=== PATIENT | female | born 1980 | race Caucasian/White ===

== ENCOUNTER 2017-09-21 15:03 | Emergency (ER) | payer OTHER ==
[2017-09-21 15:08] VITALS: BP 118/76; PULSE 120; RESP 20; TEMP 98.6; O2SAT 100
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
[2017-09-21] MEDS ORDERED: ROBA750T PO (19:54)
[2017-09-21] MEDS ORDERED: IBUP-232 PO (19:54)
[2017-09-21] MEDS ORDERED: IBUPROFEN 600 MG TAB PO ONE (20:00)
[2017-09-21] MEDS ORDERED: METHOCARBAMOL 500 MG TAB PO ONE (20:00)
== END 2017-09-21 20:14 | disposition home or self-care (01) ==
LOC: NEDAMB 15:03
DX: S09.90XA Unspecified injury of head, initial encounter (principal); S16.1XXA Strain of muscle, fascia and tendon at neck level, initial encounter; M25.561 Pain in right knee; M25.562 Pain in left knee; V43.53XA Car driver injured in collision with pick-up truck in traffic accident, initial encounter
CPT/HCPCS: 70450; 70486; 71045; 72072; 72100; 72125; 73564; 84703; 99284

== ENCOUNTER 2018-06-29 15:20 | Inpatient (IN) ==
--- NOTE | 2018-06-29 15:58 | ED ---
HPI General Chief Complaint: Overdose Stated Complaint: Poss OD Time Seen by Provider: 06/29/18 15:37 Source: patient Mode of arrival: ambulatory Limitations: no limitations History of Present Illness HPI Narrative: 38 year old female with a past medical history of asthma and depression presents to the ED for evaluation of Benadryl overdose. She states that she has been feeling very depressed over the last few days and today while getting for work she started crying uncontrollably. She says she went into the medicine cabinet and took all the pills in the Benadryl bottle. She says that immediately after she realized she didn't want to and tried to induce vomiting but was unsuccessful. She says that she was previously medicated for her depression about two years ago but the medication became too expensive for her budget. She states she attempted suicide once before while she was actively using illicit drugs but that was many years ago and she says she was so high at the time that she doesn't remember doing it. She denies taking any other medications, alcohol or illict drugs today. She states that she is unsure if the bottle was full but that the bottle holds 36 pills. She denies any cardiac history, chest pain, abdominal pain, nausea or vomiting. Related Data Home Medications Medication Instructions Recorded Confirmed No Known Home Medications 06/18/18 06/29/18 Allergies Allergy/AdvReac Type Severity Reaction Status Date / Time No Known Allergies Allergy Unverified 11/27/17 22:48 Review of Systems ROS: all other systems reviewed are negative [facility] Medical History Medical History Depression (Acute) Hepatitis C (Acute) Social History Social History Substance History: Past History Second Hand Smoke Exposure: Yes Smoking Status: Former smoker Tobacco Type: Cigarettes How Often Do You Have a Drink Containing Alcohol: Never Recent Travel in [facility] within the Last 8 Weeks: No Recent Out of Country Travel within the Last 8 Weeks: No Immunization History Tetanus Immunization: >5 Years Exam Narrative Exam Narrative: GENERAL: Well-appearing in no distress. SKIN: Focused skin assessment warm/dry. HEAD: Atraumatic. Normocephalic. EYES: Pupils equal and round. No scleral icterus. No injection or drainage. ENT: No nasal bleeding or discharge. Mucous membranes pink and moist. Tongue is midline. No uvula deviation. NECK: Trachea midline. No JVD. CARDIOVASCULAR: Regular rate and rhythm. No murmur appreciated. RESPIRATORY: No accessory muscle use. Clear to auscultation. Breath sounds equal bilaterally. GASTROINTESTINAL: Abdomen soft, non-tender, nondistended. Hepatic and splenic margins not palpable. MUSCULOSKELETAL: No obvious deformities. No clubbing. No cyanosis. No edema. Full range of motion of the upper and lower extremities bilaterally. 2+ pulse bilaterally. NEUROLOGICAL: Awake and alert. No obvious cranial nerve deficits. Motor grossly within normal limits. Normal speech. PSYCHIATRIC: Appropriate mood and affect; insight and judgment normal. Course Initial Documented Vital Signs Pulse Rate 109 H 06/29/18 15:33 Respiratory Rate 20 06/29/18 15:33 Blood Pressure 149/107 H 06/29/18 15:33 Pulse Oximetry 100 06/29/18 15:33 Last Documented Vital Signs Temperature 98.2 F 06/29/18 17:10 Pulse Rate 69 06/29/18 18:10 Respiratory Rate 16 06/29/18 18:10 Blood Pressure 111/75 06/29/18 18:10 Pulse Oximetry 100 06/29/18 18:10 Medical Decision Making MDM Narrative Medical decision making narrative: 38-year-old female who presents to the ED for evaluation of overdose. Patient was properly examined and was found to have signs and symptoms consistent with overdose. Patient involuntarily and willing to stay. Patient wants help. This time but she will not be Peters acted but if she does decide to leave she will be Peters acted. Labs ordered. Labs were essentially unremarkable. Poison control was contacted and the recommend that patient had a second EKG and monitor. If patient fine with no sign of QRS abnormalities patient could be medically clear. Labs and psych and EKG were essentially unremarkable. Patient was medically cleared pending psychiatric evaluation. Mental health screening was discussed with the patient. Medical Screen Exam Complete: Yes Emergency Medical Condition: Yes Differential Diagnosis Differential Diagnosis: Overdose versus depression versus suicidal attempt versus Benadryl overdose Medical Records Medical records reviewed: Yes I reviewed the patient's medical records. Lab Data Lab results reviewed: Yes I reviewed the patient's lab results. Result diagrams: 06/29/18 16:07 06/29/18 16:07 POC Results POC Urine Results Negative Lab Results 02/06/29/18 06/29/18 Range/Units 16:02 16:07 16:07 WBC 8.3 (4.0-11.0) th/mm3 RBC 4.15 (4.00-5.30) mil/mm3 Hgb 12.7 (11.6-15.3) gm/dL Hct 37.2 (35.0-46.0) % MCV 89.6 (80.0-100.0) fL MCH 30.5 (27.0-34.0) pg MCHC 34.1 (32.0-36.0) % RDW 13.5 (11.6-17.2) % Plt Count 169 (150-450) th/mm3 MPV 9.1 (7.0-11.0) fL Neut % (Auto) 60.7 (16.0-70.0) % Lymph % (Auto) 25.0 (9.0-44.0) % [place] % (Auto) 11.0 H (0.0-8.0) % Eos % (Auto) 2.6 (0.0-4.0) % Baso % (Auto) 0.7 (0.0-2.0) % Neut # (Auto) 5.0 (1.8-7.7) th/mm3 Lymph # (Auto) 2.1 (1.0-4.8) th/mm3 [place] # (Auto) 0.9 (0.0-0.9) th/mm3 Eos # (Auto) 0.2 (0.0-0.4) th/mm3 Baso # (Auto) 0.1 (0.0-0.2) th/mm3 WBC Differential . Differential Comment Auto diff final Sodium 142 (136-145) meq/L Potassium 3.3 L (3.5-5.1) meq/L Chloride 108 H (98-107) meq/L Carbon Dioxide 26.9 (21.0-32.0) meq/L Anion Gap 7 (5-15) meq/L BUN 8 (7-18) mg/dL Creatinine 0.79 (0.50-1.00) mg/dL Estimated GFR 82 L (>89) mL/min Random Glucose 78 (74-106) mg/dL Calcium 8.3 L (8.5-10.1) mg/dL Magnesium 2.1 (1.5-2.5) mg/dL Total Bilirubin 0.4 (0.2-1.0) mg/dL AST 36 (15-37) U/L ALT 22 (10-53) U/L Alkaline Phosphatase 89 (45-117) U/L Total Protein 7.5 (6.4-8.2) g/dL Albumin 3.7 (3.4-5.0) g/dL TSH 0.185 L (0.358-3.740) uIU/mL Thyroxine (T4) 9.9 (4.8-13.9) mcg/dL Salicylates (2.8-20.0) mg/dL Urine Opiates Screen Neg (Neg) Acetaminophen Less than 2.0 L (10.0-30.0) mcg/mL Ur Barbiturates Screen Neg (Neg) Ur Amphetamines Screen Neg (Neg) U Benzodiazepines Scrn Neg (Neg) Urine Cocaine Screen Neg (Neg) U Cannabinoids Screen Neg (Neg) Serum Alcohol Less than 3 (0-5) mg/dL 06/29/18 06/29/18 Range/Units 16:07 16:07 WBC (4.0-11.0) th/mm3 RBC (4.00-5.30) mil/mm3 Hgb (11.6-15.3) gm/dL Hct (35.0-46.0) % MCV (80.0-100.0) fL MCH (27.0-34.0) pg MCHC (32.0-36.0) % RDW (11.6-17.2) % Plt Count (150-450) th/mm3 MPV (7.0-11.0) fL Neut % (Auto) (16.0-70.0) % Lymph % (Auto) (9.0-44.0) % [place] % (Auto) (0.0-8.0) % Eos % (Auto) (0.0-4.0) % Baso % (Auto) (0.0-2.0) % Neut # (Auto) (1.8-7.7) th/mm3 Lymph # (Auto) (1.0-4.8) th/mm3 [place] # (Auto) (0.0-0.9) th/mm3 Eos # (Auto) (0.0-0.4) th/mm3 Baso # (Auto) (0.0-0.2) th/mm3 WBC Differential Differential Comment Sodium (136-145) meq/L Potassium (3.5-5.1) meq/L Chloride (98-107) meq/L Carbon Dioxide (21.0-32.0) meq/L Anion Gap (5-15) meq/L BUN (7-18) mg/dL Creatinine (0.50-1.00) mg/dL Estimated GFR (>89) mL/min Random Glucose (74-106) mg/dL Calcium (8.5-10.1) mg/dL Magnesium (1.5-2.5) mg/dL Total Bilirubin (0.2-1.0) mg/dL AST (15-37) U/L ALT (10-53) U/L Alkaline Phosphatase (45-117) U/L Total Protein (6.4-8.2) g/dL Albumin (3.4-5.0) g/dL TSH (0.358-3.740) uIU/mL Thyroxine (T4) Cancelled (4.8-13.9) mcg/dL Salicylates 3.1 (2.8-20.0) mg/dL Urine Opiates Screen (Neg) Acetaminophen (10.0-30.0) mcg/mL Ur Barbiturates Screen (Neg) Ur Amphetamines Screen (Neg) U Benzodiazepines Scrn (Neg) Urine Cocaine Screen (Neg) U Cannabinoids Screen (Neg) Serum Alcohol (0-5) mg/dL ECG Data Attestation: I personally reviewed and interpreted this ECG as follows: Interpretation: EKG shows sinus rhythm with no sign of acute ischemia and arrhythmia read by me and attending. Ventricular rate of 67 bpm, IA interval 149 ms. Discharge Plan Discharge Disposition Patient Disposition: Sign Out(ED Internal Use Only) Discharge Details Diagnosis: Drug overdose, Depression with suicidal ideation Physicians Team ED Provider: Radha [place] ED Midlevel Provider: Miguel Spears Primary Care Provider: Primary Care Carlee Ibrahim Rxs /Orders / Referrals /Forms Prescriptions: No Action No Known Home Medications RF: 0 Status ED Status: Medically Cleared
[2018-06-29 16:19] LABS: Baso # (Auto) 0.1 th/mm3 (0.0-0.2); Baso % (Auto) 0.7 % (0.0-2.0); Eos # (Auto) 0.2 th/mm3 (0.0-0.4); Eos % (Auto) 2.6 % (0.0-4.0); Hematocrit 37.2 % (35.0-46.0); Hemoglobin 12.7 gm/dL (11.6-15.3); Lymph # (Auto) 2.1 th/mm3 (1.0-4.8); Mean Corpuscular HGB Conc 34.1 % (32.0-36.0); Mean Corpuscular Hemoglobin 30.5 pg (27.0-34.0); Mean Corpuscular Volume 89.6 fL (80.0-100.0); Mean Platelet Volume 9.1 fL (7.0-11.0); Mono # (Auto) 0.9 th/mm3 (0.0-0.9); Neut % (Auto) 60.7 % (16.0-70.0); Platelet Count 169 th/mm3 (150-450); Red Blood Count 4.15 mil/mm3 (4.00-5.30); Red Cell Distribution Width 13.5 % (11.6-17.2); White Blood Count 8.3 th/mm3 (4.0-11.0)
[2018-06-29 16:43] LABS: Alanine Aminotransferase 22 U/L (10-53); Albumin 3.7 g/dL (3.4-5.0); Anion Gap 7 meq/L (5-15); Aspartate Aminotransferase 36 U/L (15-37); Calcium 8.3 mg/dL (8.5-10.1); Carbon Dioxide 26.9 meq/L (21.0-32.0); Chloride 108 meq/L (98-107); Glomerular Filtration Rate 82 mL/min (>89); Glucose,Random 78 mg/dL (74-106); Magnesium 2.1 mg/dL (1.5-2.5); Potassium 3.3 meq/L (3.5-5.1); Sodium 142 meq/L (136-145)
[2018-06-29 16:51] LABS: Alkaline Phosphatase 89 U/L (45-117); Blood Urea Nitrogen 8 mg/dL (7-18); Thyroid Stimulating Hormone 0.185 uIU/mL (0.358-3.740); Total Protein 7.5 g/dL (6.4-8.2)
[2018-06-29] MEDS ORDERED: Sod Chloride 0.9% Inj 1,000 ML IV.SIG SCH (17:15)
[2018-06-29 17:35] LABS: T4 (Thyroxine) 9.9 mcg/dL (4.8-13.9)
[2018-06-29 17:57] LABS: Amphetamine Screen,Urine Neg (Neg); Barbiturate Screen,Urine Neg (Neg); Cannabinoid Screen,Urine Neg (Neg); Cocaine Screen,Urine Neg (Neg)
[2018-06-29 18:07] LABS: Opiate Screen,Urine Neg (Neg)
[2018-06-30] MEDS ORDERED: Acetaminophen 325 MG Tablet PO PRN (00:48)
[2018-06-30] MEDS ORDERED: Aluminum/Magnesium/Simethacone Susp 30 ML UDC PO PRN (00:48)
[2018-06-30] MEDS ORDERED: LORazepam 1 MG Tablet PO PRN (00:48)
[2018-06-30] MEDS: Sertraline 50 MG Tablet PO SCH (09:06)
--- NOTE | 2018-06-30 10:28 | P.HPPSY ---
Provisional Diagnosis Admission Date: June 29, 2018 23:44 [place] I.: Adjustment disorder with depressed mood Competence Certification of Person's Competence To Provide Express and Informed Consent I have personally examined Ana Boudreaux, a person being served at [facility] on, June 30, 2018 1019. Express and informed consent means consent voluntarily given in writing, by a competent person, after sufficient explanation and disclosure of the subject matter involved to enable the person to make a knowing and willful decision without any element of force, fraud, deceit, duress, or other form of constraint or coercion. This person is 18 years of age or older, is not now known to be incompetent to consent to treatment with a guardian advocate, and does not have a health care surrogate or proxy currently making medical treatment decisions. I have found this person to be one of the following: [] Competent to provide express and informed consent, as defined above, for voluntary admission to this facility and is competent to provide express and informed consent for treatment. He/she has the consistent capacity to make well reasoned, willful, and knowing decisions concerning his or her medical or mental health treatment. The person fully and consistently understands the purpose of the admission for examination/placement and is fully capable of personally exercising all rights assured [place] [] Incompetent to provide express and informed consent to voluntary admission, and this is incompetent to provide express and informed consent to treatment. The person must be transferred to involuntary status and a petition for a guardian advocate filed with the Circuit Court. [] Refusing to provide express and informed consent to voluntary admission but is competent to provide express and informed consent for treatment. The person must be discharged or transferred to involuntary status. Form shall be completed within 24 hours of a person's arrival at the receiving facility and filed in the clinical record of each person: 1. Admitted on a voluntary basis 2. Permitted to provide express and informed consent to his/her own treatment 3. Allowed to transfer from involuntary to voluntary status 4. Prior to permitting a person to consent to his or her own treatment after having been previously found incompetent to consent to treatment. History of Present Illness Capacity: Has capacity Chief Complaint: Depression and suicidal overdose History of Present Illness: HPI: Patient is a 38-year-old female who is admitted voluntarily after taking an overdose of unknown number of Benadryl caplets. Patient was sleeping soundly but both times when I attempted to interview her and did not take her breakfast. Patient admitted still uncertain about her continued intention of regarding suicide. Claims immediately after taking the Benadryl overdose she regretted to and 20 minutes later attempted emesis without success. It was then that she called for help. 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 At work in a [employer] she feels the management is always on her and never pleased with her work. The patient has had one other suicide attempt years ago when she was using illicit drugs on a regular basis. Patient describes her impulses to do harm to herself as coming and going. Although the patient cooperated with the interview it seemed likely she was more interested in falling back to sleep and avoiding any difficult questions. - Inpatient Certification I certify that the inpatient services were ordered in accordance with Medicare regulations governing the order. This includes certification that hospital inpatient services are reasonable and necessary and in the case of services not specified as inpatient-only under 42 CFR 419.22(n), that they are appropriately provided as inpatient services in accordance to with the 2-midnight benchmark under 43 CFR 412.3(e) I certify that inpatient psychiatric hospital services are medically necessary. Evaluation and treatment and/or diagnostic testing are expected to improve the patient's condition. The patient needs on a daily basis, active treatment furnished directly by or requiring the supervision of inpatient psychiatric facility personnel. Estimated Total Length of Stay (Days): 5 Plans for Post Hospital Care: Not yet determined Review of Systems Denies any physical problems on the [facility] - History History Provided By: Patient - Medical History Medical History: Medical History (Last Reviewed 06/29/18 @ 15:56 by NYDIA White) Depression Hepatitis C - Tobacco History Second Hand Smoke Exposure: No Tobacco Use In Past 30 Days: Yes Smoking Status: Current every day smoker Tobacco Type: Cigarettes - Alcohol History How Often Do You Have a Drink Containing Alcohol: Monthly or less - Substance Use History Substance History: Past History - Travel History Recent Travel in the [place] Within the Last 8 Weeks: No Recent Travel Out of the Country Within the Last 8 Weeks: No - Immunization History Tetanus Immunization: Unsure Hx Influenza Vaccine This Season: No Medications and Allergies Active Medications: Active Medications Acetaminophen (Tylenol) 650 mg PO Q4H PRN PRN Reason: Pain 1-5 or Temp >101F Al Hydrox/Mg Hydrox/Simethicone (Mag-Al Plus Susp Liq) 30 ml PO Q6H PRN PRN Reason: DYSPEPSIA Al Hydroxide/Mg Hydroxide (Milk Of Magnesia Liq) 30 ml PO DAILY PRN PRN Reason: CONSTIPATION Hydroxyzine HCl (Atarax) 25 mg PO Q6H PRN PRN Reason: ANXIETY AND/OR INSOMNIA Last Admin: 06/30/18 09:06 Dose: 25 mg Lorazepam (Ativan) 1 mg PO Q6H PRN PRN Reason: MODERATE TO SEVERE ANXIETY Lorazepam (Ativan Inj) 1 mg IM Q6H PRN PRN Reason: MODERATE TO SEVERE ANXIETY Nicotine (Habitrol 21 Mg Patch.24 Hr) 1 patch T-DERMAL DAILY [facility] Last Admin: 06/30/18 09:06 Dose: 1 patch Sertraline HCl (Zoloft) 50 mg PO DAILY [facility] Last Admin: 06/30/18 09:06 Dose: 50 mg Allergies Allergy/AdvReac Type Severity Reaction Status Date / Time No Known Allergies Allergy Unverified 11/27/17 22:48 Home Medications Medication Instructions Recorded Confirmed Type No Known Home Medications 06/18/18 06/29/18 History Results - Labs CBC & Chem 7: 06/29/18 16:07 06/29/18 16:07 Labs: Laboratory Results - last 24 hr 06/29/18 06/29/18 06/29/18 16:02 16:07 16:07 WBC 8.3 RBC 4.15 Hgb 12.7 Hct 37.2 MCV 89.6 MCH 30.5 MCHC 34.1 RDW 13.5 Plt Count 169 MPV 9.1 Neut % (Auto) 60.7 Lymph % (Auto) 25.0 [place] % (Auto) 11.0 H Eos % (Auto) 2.6 Baso % (Auto) 0.7 Neut # (Auto) 5.0 Lymph # (Auto) 2.1 [place] # (Auto) 0.9 Eos # (Auto) 0.2 Baso # (Auto) 0.1 WBC Differential . Differential Comment Auto diff final Sodium 142 Potassium 3.3 L Chloride 108 H Carbon Dioxide 26.9 Anion Gap 7 BUN 8 Creatinine 0.79 Estimated GFR 82 L Random Glucose 78 Calcium 8.3 L Magnesium 2.1 Total Bilirubin 0.4 AST 36 ALT 22 Alkaline Phosphatase 89 Total Protein 7.5 Albumin 3.7 TSH 0.185 L Thyroxine (T4) 9.9 Salicylates Urine Opiates Screen Neg Acetaminophen Less than 2.0 L Ur Barbiturates Screen Neg Ur Amphetamines Screen Neg U Benzodiazepines Scrn Neg Urine Cocaine Screen Neg U Cannabinoids Screen Neg Serum Alcohol Less than 3 06/29/18 06/29/18 16:07 16:07 WBC RBC Hgb Hct MCV MCH MCHC RDW Plt Count MPV Neut % (Auto) Lymph % (Auto) [place] % (Auto) Eos % (Auto) Baso % (Auto) Neut # (Auto) Lymph # (Auto) [place] # (Auto) Eos # (Auto) Baso # (Auto) WBC Differential Differential Comment Sodium Potassium Chloride Carbon Dioxide Anion Gap BUN Creatinine Estimated GFR Random Glucose Calcium Magnesium Total Bilirubin AST ALT Alkaline Phosphatase Total Protein Albumin TSH Thyroxine (T4) Cancelled Salicylates 3.1 Urine Opiates Screen Acetaminophen Ur Barbiturates Screen Ur Amphetamines Screen U Benzodiazepines Scrn Urine Cocaine Screen U Cannabinoids Screen Serum Alcohol Exam Vital signs: Vital Signs 06/29/18 15:33 06/29/18 16:04 06/29/18 17:10 Temperature 98.2 F Pulse Rate 109 H 85 97 H Respiratory Rate 20 16 16 Blood Pressure 149/107 H 122/75 117/61 Pulse Oximetry 100 100 100 06/29/18 18:10 06/29/18 21:00 06/30/18 00:35 Temperature 97.5 F L Pulse Rate 69 64 70 Respiratory Rate 16 15 16 Blood Pressure 111/75 99/52 L 119/72 Pulse Oximetry 100 99 06/30/18 06:00 Temperature 97.7 F Pulse Rate 58 L Respiratory Rate 16 Blood Pressure 105/55 L Pulse Oximetry 98 Intake & Output 06/29/18 06/30/18 06/30/18 18:59 06:59 18:59 Intake Total 1000 / 1000 Balance 1000 / 1000 Weight 55.792 kg 58.06 kg Intake: IV 1000 / 1000 NS Inj 1,000 ML @ 1000 mls/hr 1000 / 1000 IV.SIG BOLUS MANISHA Rx#:[id number] Other: Weight On Admission 58.06 kg Mental Status Examination Appearance: Appropriate Consciousness: Alert, Lethargic Orientation: x4 Motor Activity: Normal gait Speech: Unremarkable Language: Adequate Fund of Knowledge: Adequate Attention and Concentration: Adequate Memory: Unremarkable Mood: Sad Affect: Sad Thought Process & Associations: Intact Thought Content: Appropriate Hallucination Type: None Delusion Type: None Suicidal Ideation: Yes Suicidal Plan: Yes Suicidal Intention: Yes (Intermittent) Insight: Fair Judgment: Impulsive Assessment and Plan - Plan Plan: Estimated LOS: [] days Patient will be started on Seroquel 50 mg a day. She was on Seroquel years ago but does not remember the dosage. She will also be offered 25 mg Atarax as needed every 6 hours. Justification for Continued Inpatient Stay: Patient remains intermittently suicidal
[2018-06-30 17:41] VITALS: O2SAT 99
[2018-07-01] MEDS ORDERED: Loperamide 2 MG Capsule PO PRN ×2 (02:41→08:17)
[2018-07-01 06:05] VITALS: BP 122/74; PULSE 70; RESP 16; TEMP 97.6
--- NOTE | 2018-07-01 06:33 | ECG ---
Date Performed: 06/29/2018 Time Performed: 17:33:27 PTAGE: 38 years EKG: Sinus rhythm POSSIBLE LEFT ATRIAL ENLARGEMENT POSSIBLE RIGHT VENTRICULAR CONDUCTION DELAY BORDERLINE ECG PREVIOUS TRACING : 06/29/2018 16.00 Since the previous tracing, no significant change noted DOCTOR: Franklin Landa Interpretating Date/Time 07/01/2018 06:32:38
--- NOTE | 2018-07-01 06:36 | ECG ---
Date Performed: 06/29/2018 Time Performed: 16:00:35 PTAGE: 38 years EKG: Sinus rhythm POSSIBLE LEFT ATRIAL ENLARGEMENT BORDERLINE ECG PREVIOUS TRACING : 06/11/2008 00.56 Since the previous tracing, no significant change noted DOCTOR: Franklin Landa Interpretating Date/Time 07/01/2018 06:35:48
[2018-07-01] MEDS: Sertraline 50 MG Tablet PO SCH (08:41)
[2018-07-01 08:44] LABS: Anion Gap 10 meq/L (5-15); Blood Urea Nitrogen 14 mg/dL (7-18); Calcium 8.5 mg/dL (8.5-10.1); Chloride 111 meq/L (98-107); Glomerular Filtration Rate Greater Than 89 mL/min (>89); Glucose,Random 65 mg/dL (74-106); Potassium 3.4 meq/L (3.5-5.1); Sodium 143 meq/L (136-145)
[2018-07-01 08:45] LABS: Cholesterol 110 mg/dL (120-200)
[2018-07-01 08:47] LABS: Chol/HDL Ratio 3.35 Ratio; HDL Cholesterol 32.8 mg/dL (40.0-60.0); LDL Cholesterol,Calculated 64 mg/dL (0-99); Triglycerides 64 mg/dL (42-150)
--- NOTE | 2018-07-01 09:09 | P.DSPSY ---
Psychiatry Discharge Summary Inpatient Psychiatric care?: Yes Advance Directives: No Mental Health Advance Directive: No Health Care Proxy: No - Admission Admission Date: June 29, 2018 23:44 Brief History: HPI: Patient is a 38-year-old female who is admitted voluntarily after taking an overdose of unknown number of Benadryl caplets. Patient was sleeping soundly but both times when I attempted to interview her and did not take her breakfast. Patient admitted still uncertain about her continued intention of regarding suicide. Claims immediately after taking the Benadryl overdose she regretted to and 20 minutes later attempted emesis without success. It was then that she called for help. Patient lives with her boyfriend and his son she works as a clinical manager at a local restaurant and is having more conflict at work than at home. At work in a [employer] she feels the management is always on her and never pleased with her work. The patient has had one other suicide attempt years ago when she was using illicit drugs on a regular basis. Patient describes her impulses to do harm to herself as coming and going. Although the patient cooperated with the interview it seemed likely she was more interested in falling back to sleep and avoiding any difficult questions. Tobacco Use In Past 30 Days: Yes How Often Do You Have a Drink Containing Alcohol: Monthly or less Hospital Course: Hospital course: Patient was started on sertraline 50 mg daily and Atarax 25 every 6 as needed. The patient has the flu was given some Imodium on the last day for her diarrhea. Other than that there was no medication and the patient is referred to [facility] for outpatient care. Consumption of alcohol and stresses related to her employment all of these are being addressed by the patient. - Discharge Discharge Date: 07/01/18 Discharge Disposition: Home - Discharge Instructions Discharge Diet: Regular Diet Activities You Can Perform: Regular- No Restrictions - Discharge Time > 30 minutes Mental Status Examination Appearance: Appropriate Consciousness: Alert, Lethargic Orientation: x4 Motor Activity: Normal gait Speech: Unremarkable Language: Adequate Fund of Knowledge: Adequate Attention and Concentration: Adequate Memory: Unremarkable Mood: Sad Affect: Sad Thought Process & Associations: Intact Thought Content: Appropriate Hallucination Type: None Delusion Type: None Suicidal Ideation: No Suicidal Plan: No Suicidal Intention: No (Intermittent) Insight: Fair Judgment: Impulsive Discharge/Advance Care Plan - Results Vital Signs: Last Vital Signs Temp 97.6 F 07/01/18 06:00 Pulse 70 07/01/18 06:00 Resp 16 07/01/18 06:00 BP 122/74 07/01/18 06:00 Pulse Ox 99 07/01/18 06:00 Lab Results: Abnormal Lab Results 07/01/18 06:40 Sodium 143 Potassium 3.4 L Chloride 111 H Carbon Dioxide 22.0 Anion Gap 10 BUN 14 Creatinine 0.62 Estimated GFR Greater than 89 Random Glucose 65 L Calcium 8.5 Triglycerides 64 Cholesterol 110 L LDL Cholesterol, Calc 64 HDL Cholesterol 32.8 L Cholesterol/HDL Ratio 3.35 Laboratory Results Triglycerides 64 mg/dL (42-150) 07/01/18 06:40 Cholesterol 110 mg/dL (120-200) L 07/01/18 06:40 LDL Cholesterol, Calc 64 mg/dL (0-99) 07/01/18 06:40 HDL Cholesterol 32.8 mg/dL (40.0-60.0) L 07/01/18 06:40 TSH 0.185 uIU/mL (0.358-3.740) L 06/29/18 16:07 Summary of Procedures: None Pending Results: None - Medications Number of antipsychotic medications at discharge: 0 - Discharge Care Plan Goals to Promote Your Health: * To prevent worsening of your condition and complications * To maintain your health at the optimal level Directions to Meet Your Goals: Take your medications as prescribed Follow your dietary instruction Follow activity as directed Keep your appointments as scheduled Take your immunizations and boosters as scheduled If your symptoms worsen call your PCP, if no PCP go to Urgent Care Center or Emergency Room For 01/12 questions related to your inpatient stay or results of tests pending at discharge, please contact Dr. Berlin Nathan MD at Smoking is Dangerous to Your Health. Avoid second hand smoking
[2018-07-01 15:39] LABS: Hemoglobin A1c 5.5 % (4.3-6.0)
== END 2018-07-01 10:55 | disposition home or self-care (01) | DRG 881 ==
LOC: NEPD 15:20 → NEDA 23:44 → H260 06-30 00:28
PROVIDERS: ADMIT Psychiatry & Neurology Child & Adolescent Psychiatry; ATTEND Psychiatry & Neurology Child & Adolescent Psychiatry
CPT/HCPCS: J7030